=== PATIENT | male | born 1960 | race Caucasian/White ===

== ENCOUNTER 2024-08-31 13:34 | Emergency (ER) | payer MEDICARE, SELFPAY ==
--- NOTE | ~2024-08-31 | XR_ITS ---
XR finger 3rd LT min 2V 08/31/2024 14:00 Indication: Crush injury of the left hand Procedure: 4 views left third finger Comparison: No prior studies for comparison. Findings: There is a comminuted mildly displaced tuft fracture third distal phalanx. There is a commi nuted nondisplaced tuft fracture distal phalanx. Mild polyarticular osteoarthritis. Impression: 1: Tuft fractures of the third and fourth distal phalanges. Reviewed, dictated and finalized at location A. Impression: 1: Tuft fractures of the third and fourth distal phalanges.
--- NOTE | 2024-08-31 13:35 | ED_ITS ---
HPI - Extremity Injury (Upper) General Chief Complaint: Extremity Injury, Upper Stated Complaint: finger injury Time Seen by Provider: 08/31/24 13:35 Source: patient Mode of arrival: ambulatory Limitations: no limitations History of Present Illness HPI narrative: Pollo is a 63-year-old male patient presenting to the clinic today with complaints of a left 3rd finger injury approximately 20 minutes prior to arriva l. He reports he had his finger smashed by an aeration machine. Was wearing a glove- laceration to the left 3rd finger mid phalanx. Bleeding controlled. Tetanus up-to-date in 2022. Is able to flex and extend the PIP and D IP joint appropriately. Related Data Home Medications Medication Instructions Recorded Confirmed Last Taken Type atorvastatin 40 mg tablet mg 08/31/24 Unknown History famotidine 20 mg tablet mg 08/31/24 Unknown History lisinopril 20 tablet 08/31/24 Unknown History mg-hydrochlorothiazide 25 mg tablet Allergies Allergy/AdvReac Type Severity Reaction Status Date / Time No Known Allergies Allergy Verified 08/31/24 13:52 Review of Systems Review of Systems: Pertinent positives per HPI. Patient denies any fever, chills, rash, headache, visual changes, dizziness, cough, runny nose, sore throat, shortness of breath, chest pain, palpitations, nausea, vomiting, diarrhea, constipation, abdominal pain, or any urinary issues. PMFSH Comments At the time of my signature, I reviewed and agree with the nursing past medical, surgical, social, and family history. There is no relevant family history pertinent to the patient complaint. Exam Narrative: General: Well-developed, well nourished, in no apparent distress Head: Normocephalic, atraumatic. Cardio: Regular rate and rhythm, s1 and s2 normal, no murmur appreciated. Resp: Clear to auscultation bilaterally, no rhonchi, rales, wheezing or rubs. Musculoskeletal: No deformity, laceration measurements total 3.5 cm, patient has 3 separate lacerations 1st laceration measuring 2 cm, 2nd laceration measuring 0.5 cm, and 3rd laceration measuring 1 cm to the volar aspect of the left 3rd finger, tender to palpation over the mid left 3rd phalanx, flexion and extension against resistance normal, grossly normal range of motion, muscle strength strong and equal, peripheral pulse strong, no edema, no cyanosis, normal gait and station Course Course Emergency Course: Portions of this record may have been created with voice recognition software. Level of Care: Express Care Visit Vital Signs Vital signs: Vital Signs Temperature 36.1 C L 08/31/24 13:50 Pulse Rate 66 08/31/24 13:50 Respiratory Rate 18 08/31/24 13:50 Blood Pressure 114/77 08/31/24 13:50 Pulse Oximetry 98 08/31/24 13:50 Oxygen Delivery Room Air 08/31/24 13:50 Temperature 36.1 C L 08/31/24 13:50 Pulse Rate 66 08/31/24 13:50 Respiratory Rate 18 08/31/24 13:50 Blood Pressure 114/77 08/31/24 13:50 Pulse Oximetry 98 08/31/24 13:50 Oxygen Delivery Room Air 08/31/24 13:50 Vital signs reviewed Procedures Laceration Laceration 1: Date: 08/31/24 Site: hand (finger) Side (If applicable): left (3rd) Size (cm): 3.5 Description: flap and irregular Depth: simple, single layer Local Anesthetic: lidocaine 1% Amount of anesthesia used (mL): 8 Pre-repair: wound explored, irrigated and irrigated extensively ====== Skin Level ====== Skin layer closed with: nylon Size (cm): 5-0 Number of sutures: 5 Technique: simple, interrupted ====== Subcutaneous Layer ====== ====== Muscle Layer ====== ====== Tendon Layer ====== Dressing: Verbal consent obtained for laceration repair. Risk and benefits explained and patient voiced understanding. Area was cleansed with antiseptic wound wash and sterile normal saline and a 27 gauge needle was then used to instill (8) ml of 1% lidocaine without epi into the medial and lateral digit to create a digital block. Area was prepped and draped using sterile technique. A 5-0 suture on a p needle was used to place (12) interrupted sutures bringing the wound edges together- well approximated. Patient tolerated procedure well. Sterile dressing applied. Metal finger splint applied MDM - Extremity Injury (Upper) MDM Narrative Medical decision making narrative: At the time of visit patient is resting comfortably on the exam table. Patient appears to be nontoxic. Diagnostics: X-ray of the left 3rd finger was performed shows tuft fractures of the 3rd and 4th left fingers Procedures: Laceration repair was performed. Digital block was performed. A 12 interrupted sutures were placed. Wound edges were brought approximate together. Patient tolerated well Plan: Patient has tuft fractures of the 3rd and 4th left fingers as well as a laceration to the left 3rd finger. Laceration repair was performed as discussed above. Will place patient on Keflex. Metal finger splints were applied. Will have patient follow-up with hand specialist or ortho in [facility] where he lives. Supportive measures were discussed with the patient and they voiced understanding discharge instructions and agrees to treatment plan. Return precautions reviewed Differential Diagnosis Differential diagnosis: Likely finger sprain, dislocation of finger and other (Finger fracture, tendon injury) Discharge Plan Discharge Clinical Impression: Open fracture of tuft of distal phalanx of finger, Closed fracture of tuft of distal phalanx of finger Laceration of finger Qualifiers: Encounter type: initial encounter Finger: middle finger Damage to nail status: without damage Foreign body presence: without foreign body Laterality: left Qualified Code(s): S61.213A - Laceration without foreign body of left middle finger without damage to nail, initial encounter Patient Disposition: Home Condition: Stable Instructions: Antibiotic Form, Finger Fracture (ED), Finger Laceration (ED) Additional Instructions: Leave bandage on for 24 hours then may remove and apply band aide covering as needed. Rest, ice, and elevate Wear metal finger splint as discussed Keep wound clean and dry Skin sutures out in 10 days. Take cephalexin as prescribed. Watch for signs and symptoms of infection- redness, streaking, swelling, purulent discharge, or increase in pain. Follow up with your PCP for suture removal Follow-up with orthopedic provider/hand specialist in your area-call to schedule appointment as soon as possible Patient Language: Bulgarian Prescriptions: New cephalexin 500 mg capsule 500 mg PO Q12H 7 Days Qty: 14 0RF No Action atorvastatin 40 mg tablet famotidine 20 mg tablet lisinopril-hydrochlorothiazide 20-25 mg tablet Follow-up/Referrals: PHYSICIAN NOT ON STAFF,NONSTAFF [Primary Care Provider] - Time of Disposition: 14:59 Quality NIHSS Nursing Documentation ED NIHSS nursing documentation: reviewed/agree
--- OUTSIDE RECORDS SUMMARY | 2024-08-31 13:49 | XMS_ITS | Encounter Summary ---
Author Organization [facility] Address [facility] [place] [address] Care Team Providers Care Blasting Miner Name Role Phone Maryuri Velazquez MD Primary Care Provider [phone] Encounter Details Date Type Department Care Team (Late st Contact Info) Description 05/03/2023 GLG Message Enc [facility] Family Medicine - [place] [address] 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 [address] PCP - General FAMILY PRACTICE 05/10/21 documented as of this encounter
--- OUTSIDE RECORDS SUMMARY | 2024-08-31 13:49 | XMS_ITS | Encounter Summary ---
Author Organization [facility] Address [facility] [place] [address] Care Team Providers Care Supervisor Boarding Name Role Phone Maryuri Velazquez MD Primary Care Provider [phone] Encounter Details Date Type Department Care Team (Late st Contact Info) Description 04/22/2023 Twirl TV Message Enc [facility] Medical [facility] Family Medicine - [place] [address] 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 [address] PCP - General FAMILY PRACTICE 05/10/21 documented as of this encounter
--- OUTSIDE RECORDS SUMMARY | 2024-08-31 13:49 | XMS_ITS | Encounter Summary ---
Author Organization [facility] Address [address] [place] [address] Care Team Providers Care Brewer Helper Name Role Phone Maryuri Velazquez MD Primary Care Provider [phone] Encounter Details Date Type Department Care Team (Late st Contact Info) Description 11/05/2021 B-kin Software Message Enc [facility] Medical [facility] Family Medicine - [place] [address] 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 No / Unsure 10/31/2021 7:47 AM CDT documented as of this encounter Plan of Treatment Not on file documented as of this encounter Visit Diagnoses Not on filedocumented in this encounter Additional Health Concerns Assessment Noted Time PHQ-9 Depression Total Score: 0 01/25/20 21 10:59 AM CDT documented as of this encounter Care Teams Brewer Helper Relationship Specialty Start Date End Date Maryuri Velazquez MD [address] [place] [address] PCP - General FAMILY PRACTICE 05/10/21 documented as of this encounter
--- OUTSIDE RECORDS SUMMARY | 2024-08-31 13:49 | XMS_ITS | Encounter Summary ---
Author Organization [facility] Address [address] [place] [address] Care Team Providers Care Wire Drawer Name Role Phone Maryuri Velazquez MD Primary Care Provider [phone] Encounter Details Date Type Department Care Team (Late st Contact Info) Description 06/15/2022 Cloud Pharmaceuticalst Message Enc [facility] Medical Group Family Medicine - [place] [address] [place] [place] [address] Maryuri Velazquez MD [address] 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 [address] PCP - General FAMILY PRACTICE 05/10/21 documented as of this encounter
--- OUTSIDE RECORDS SUMMARY | 2024-08-31 13:49 | XMS_ITS | Encounter Summary ---
Author Organization [facility] Address [facility] [place] [address] Care Team Providers Care Vascular Ultrasound Technician Name Role Phone Maryuri Velazquez MD Primary Care Provider [phone] Encounter Details Date Type Department Care Team (Late st Contact Info) Description 07/20/2024 Gigalocalt Message Enc [facility] Medical Group Family Medicine - [place] [address] [place] [address] Maryuri Velazquez MD [address] 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 [address] PCP - General FAMILY PRACTICE 05/10/21 documented as of this encounter
--- OUTSIDE RECORDS SUMMARY | 2024-08-31 13:49 | XMS_ITS | Clinical Summary ---
Author Organization [facility] Address [address] [place] [address] Care Team Providers Care Communications Station Manager Name Role Phone Maryuri Velazquez MD Primary Care Provider [phone] Allergies No known active allergies Medications sildenafil (VIAGRA) 25 MG tabletIndications:E rectile dysfunction, unspecified erectile dysfunction type Take 1 tablet (25 mg total) by mouth daily as needed for Erectile Dysfunction. 30 tablet 4 Active atorvastatin (LIPITOR) 40 MG tabletIndications:H yperlipidemia, unspecified hyperlipidemia type TAKE 1 TABLET BY MOUTH AT BEDTIME 90 tablet 1 5 Active famotidine (PEPCID) 20 MG tabletIndications:G astroesophageal reflux disease, unspecified whether esophagitis present TAKE 1 TABLET BY MOUTH 2 TIMES A DAY 180 tablet 1 5 Active lisinopril-hydroCHL OROthiazide (ZESTORETIC) 20-25 MG tabletIndications:P rimary hypertension TAKE 1 TABLET BY MOUTH DAILY 90 tablet 1 5 Active LORazepam (ATIVAN) 0.5 MG tabletIndications:F ear of flying Take half tablet half hour prior to flight. May repeat with half tablet as needed. 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 [address] [place] [address] Maryuri Velazquez MD Medication Request 07/20/2024 MyChart Message Enc [facility] - [place] [address] [place] [address] Maryuri Velazquez MD Meds 07/07/2024 8:00 AM CDT Laboratory Only [facility] [place] [address] [place] [address] Maryuri Velazquez MD 07/07/2024 Travel from Last 3 Months Immunizations Immunization Administration Dates Next Due Flublok (Quadrivalent) 02/11/2019 Fluzone 6 Months+ Quad (0.5 mL Prefilled Syringe) 02/12/2020,01/26/2018 Fluzone Intradermal (IIV3) 04/30/2012 Influenza Adult (Generic) 02/11/2019,01/2018,02/27/2016,2014,03/03/2014,04/29/2013 Tdap (Adacel) 10/13/2022 Family History Medical History Relation Comments Dementia Father brain bleed Father pulmonary embolism Father Heart Disease Mother Hypertension Mother pacemaker Mother Heart Attack Sister 1 Relation Status Comments Father Maternal Grandfather Maternal Grandmother Mother Alive Paternal Grandfather Paternal Grandmother Sister 1 Sister 2 Alive Sister 3 Alive Sister 4 Alive Son 1 Alive Son 2 Alive Social History Tobacco Use Types Packs/Day Years Used Date Smoking Tobacco: Some Days Cigars Passive Smoke Exposure: Current Smokeless Tobacco: Never Tobacco Cessation:Ready to Q uit: No; Counseling Given: Yes Comments:3 to 5 per week Alcohol Use Standard Drinks/Week Comments Yes 33.3 (1 standard drink = 0.6 oz pure alcohol) occasional beer PHQ-2 Answer Date Recorded Patient Health Questionnaire-2 Score 0 04/13/2024 Sex and Gender Information Value Date Recorded Sex Assigned at Not on file Legal Sex Male 6:19 PM TRAVEL RN OR Gender Identity Not on file Sexual Orientation Not on file Last Filed Vital Signs Vital Sign Reading Time Taken Comments Blood Pressure 116/66 04/13/2024 8:10 AM TRAVEL RN OR Pulse 61 04/13/2024 8:10 AM TRAVEL RN OR Temperature 36.3 C (97.4 F) 04/13/2024 8:10 AM TRAVEL RN OR Respiratory Rate 18 04/13/2024 8:10 AM TRAVEL RN OR Oxygen Saturation 96% 04/13/2024 8:10 AM TRAVEL RN OR Inhaled Oxygen Concentration - - Weight 105.7 kg (233 lb) 04/13/2024 8:10 AM TRAVEL RN OR Height 177.8 cm (5' 10 ) 04/13/2024 8:10 AM TRAVEL RN OR Body Mass Index 33.43 04/13/2024 8:10 AM TRAVEL RN OR Plan of Treatment Health Maintenance Due Date Last Done Comments Colorectal Cancer Screening Colonoscopy (10 Years) 1960 Pneumococcal Vaccine: 50+ Years (1 of 2 - PCV) 1977 Zoster Vaccines (1 of 2) 2008 AAA SCREENING 10/25/2023 12/30/2015 COVID-19 Vaccine (1 - 2023-2 5 season) 2023 PHQ-2 (Physician [place]) 04/19/2024 04/13/2024 DTaP, Tdap and Td Vaccines ( 2 - Td or Tdap) 10/13/2032 10/13/2022 RSV Immunization or 60+ Years (1 - 1-dose 75+ series) 2033 Colorectal Cancer Screening FIT-DNA (3 Years) Discontinued 08/31/2019, 08/31/2019 Hepatitis C Completed 10/31/2021, 02/17/2017, 02/17/2017 Meningococcal B Vaccine Aged Out No l onger eligible based on patient's age to complete this topic Meningococcal Vaccine Aged Out No silvia sue eligible based on patient's age to complete this topic RSV Immunizations Under 20 Months Aged Out No longer eligible based on patient's age to complete this topic Procedures Procedure Name Priority Date/Time Associated Diagnosis Comments COLLECTION VENOUS BLOOD VENIPUNCTURE Routine 07/07/2024 8:04 AM CDT Hyperlipidemia, unspecified hyperlipidemia type LIPID PANEL Routine 07/07/2024 8:04 AM CDT Hyperlipidemia, unspecified hyperlipidemia type HEPATITIS C ANTIBODY Routine 10/31/2021 7:54 AM CDT Primary hypertension Hyperlipidemia, unspecified hyperlipidemia type Obesity (BMI 30-39.9) Screening for colon cancer Encounter for hepatitis C screening test for low risk patient COLOGUARD (AMBULATORY) Routine 08/31/2019 Colon cancer screening from Last 3 Months or Most Recently Relevant to Health Maintenance Results * (ABNORMAL) LIPID PANEL (07/07/2024 8:04 AM CDT) CHOLESTEROL 194 <200 MG/DL 07/07/2024 2:13 [address] TRIGLYCERIDES 96 <150 MG/DL 07/07/2024 2:[address] HDL 53 >40 MG/DL 07/07/2024 2:13 PM CDT [address] LDL-C 122(H) <100 MG/DL 07/07/2024 2:13 PM CDT [address] VLDL CALCULATION 19 5 - 28 MG/DL 07/07/2024 2:13 PM CDT [address] CHOL/HDL RATIO 3.7 0.0 - 4.0 07/07/2024 2:13 PM CDT [address] LDL/HDL 2.3(H) 0.41 - 2.13 07/07/2024 2:13 PM CDT [address] NON HDL CHOLESTEROL 141(H) <140 MG/DL 07/07/2024 2:13 [address] 07/07/2024 8:04 AM CDT Maryuri Velazquez MD LABORATORY Final Res ult [facility], [place] [address] [place] [address], [place] * HEPATITIS C AB ([facility] ONLY) (10/31/2021 7:54 AM CDT) HEPATITIS C AB NON-REACTI VE NON-REACT TAMIKO 10/31/2021 8:40 PM CDT [facility] Comment: ANTIBODIES TO HCV NOT DETECTED. DOES NOT EXCLUDE THE POSSIBILITY OF EXPOSURE TO HCV. 10/31/2021 7:54 AM CDT Maryuri Velazquez MD LABORATORY Final Res ult Performing Organization Address [facility] Co de Phone Number [facility] [address] [place] [address], * COLOGUARD (08/31/2019) Pathologist [facility] COLOGUARD NEGATIVE Stool specimen (specimen) 08/31/2019 us Paul Urban MD AMBULATORY COLOGUARD (RTF) Fin al Result from Last 3 Months or Most Recently Relevant to Health Maintenance Insurance MEDICARE [place] Care Teams Communications Station Manager Relationship Specialty Start Date End Date Maryuri Velazquez MD [address] [place] [address] PCP - General FAMILY PRACTICE 05/10/21
--- OUTSIDE RECORDS SUMMARY | 2024-08-31 13:49 | XMS_ITS | Encounter Summary ---
Author Organization [facility] Address [address] [place] [id number] Care Team Providers Care Childcare Attendant Name Role Phone Maryuri Velazquez MD Primary Care Provider [phone] Encounter Details Date Type Department Care Team (Late st Contact Info) Description 08/16/2023 Vubiquityt Message Enc [facility] Family Medicine - [place] [address] [place] [address] Maryuri Velazquez MD [address] 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 Question Answer Date of Assessment Author Status Little interest or pleasure in doing things Not at all 08/17/2023 10:38 AM Shobha Medina RN Active Feeling down, depressed, or hopeless Not at all 08/17/2023 10:38 AM Shahana Medina RN Active Patient Health Questionnaire-2 Score 0 08/17/2023 10:38 AM CDT Lizzette Jama RN Active * If you checked off any problems on this questionnaire so far, Question Answer Date of Assessment Author Status How difficult have these problems made it for you to do your work, take care of things at home, or get along with other people? Not difficult at all 08/17/2023 10:38 AM CDT Shahana Jama RN Active documented as of this encounter Plan of Treatment Not on file documented as of this encounter Visit Diagnoses Not on filedocumented in this encounter Additional Health Concerns Assessment Noted Time PHQ-9 Depression Total Score: 0 01/25/20 21 10:59 AM CDT documented as of this encounter Care Teams Childcare Attendant Relationship Specialty Start Date End Date Maryuri Velazquez MD [address] [place] [address] PCP - General FAMILY PRACTICE 05/10/21 documented as of this encounter
--- OUTSIDE RECORDS SUMMARY | 2024-08-31 13:49 | XMS_ITS | Encounter Summary ---
Author Organization [facility] Address [facility] [place] [address] Care Team Providers Care Mine Equipment Design Engineer Name Role Phone Maryuri Velazquez MD Primary Care Provider [phone] Encounter Details Date Type Department Care Team (Late st Contact Info) Description 05/03/2023 QWiPS Message Enc [facility] Family Medicine - [place] [address] 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 [address] PCP - General FAMILY PRACTICE 05/10/21 documented as of this encounter
--- OUTSIDE RECORDS SUMMARY | 2024-08-31 13:49 | XMS_ITS | Clinical Summary ---
Author Organization [facility] SINGH MD Address [address], [facility] [address] [place] [address] Phone Care Team Providers Care Neurodiagnostic Technician Name Role Phone Provider, None Primary Care Provider Unavailabl e Allergies No known active allergies Medications cloNIDine (CATAPRES) 0.1 MG Tablet Take 1 Tab by mouth daily. 30 Tab 10/03/2018 Active Active Problems No known active problems Social History Tobacco Use Types Packs/Day Years Used Date Smoking Tobacco: Some Days Cigars Sex and Gender Information Value Date Recorded Sex Assigned at Not on file Legal Sex Male 6:32 PM CDT Gender Identity Not on file Sexual Orientation Not on file Last Filed Vital Signs Vital Sign Reading Time Taken Comments Blood Pressure 127/75 10/03/2018 6:55 PM CDT Pulse 56 10/03/2018 6:55 PM CDT Temperature 36.4 C (97.5 F) 10/03/2018 4:10 PM CDT Respiratory Rate 18 10/03/2018 6:55 PM CDT Oxygen Saturation 95% 10/03/2018 6:55 PM CDT Inhaled Oxygen Concentration - - Weight 103.4 kg (228 lb) 10/03/2018 4:10 PM CDT Height 177.8 cm (5' 10 ) 10/03/2018 4:10 PM CDT Body Mass Index 32.71 10/03/2018 4:10 PM CDT Plan of Treatment Health Maintenance Due Date Last Done Comments Hepatitis C Virus (HCV) Screening 1960 TdaP Immunization 1960 Colonoscopy 10/25/2003 Colorectal Cancer Screening 10/25/2003 Cologuard 2008 Immunochemical Fecal Occult Blood 2008 Pneumococcal Immunization (5 0+ years) (1 of 1 - PCV) 2008 Zoster Immunization (1 of 2) 2008 Influenza Immunization (#1) 2023 SARS-COV-2 Immunization (1 - 2023- season) 2023 Respiratory Syncytial Virus (RSV) Immunization (Adult) (1 - 1-dose 75+ series) 2033 Hepatitis B Immunization Aged Out No longer eligible based on patient's age to complete this topic Meningococcal Immunization (ACWY) Aged Out No longer eligible based on patient's age to complete this topic Rotavirus Immunization Aged Out No lo nger eligible based on patient's age to complete this topic Insurance Care Teams Neurodiagnostic Technician Relationship Specialty Start Date End Date Provider, None [place] PCP - General 11/06/15
[2024-08-31 13:50] VITALS: BP 114/77; PULSE 66; RESP 18; TEMP 36.1; O2SAT 98
[2024-08-31] MEDS: LIDOCAINE 1% LOCAL INJ 2 ML AMPUL 4 ML INFILTRATE (14:06)
== END 2024-08-31 15:04 | disposition home or self-care (01) ==
PROVIDERS: Emergency Provider Nurse Practitioner Family
DX: S62.633B Displaced fracture of distal phalanx of left middle finger, initial encounter for open fracture (principal); S62.635A Displaced fracture of distal phalanx of left ring finger, initial encounter for closed fracture; W31.89XA Contact with other specified machinery, initial encounter
CPT/HCPCS: 12002; 29130; 73140; 99214; G0463; J2003